=== PATIENT | female | born 1990 | race Caucasian/White ===

== ENCOUNTER 2022-02-08 14:27 | Emergency (ER) | payer OTHER, SELFPAY ==
[2022-02-08 14:38] VITALS: BP 135/99; PULSE 98; RESP 18; TEMP 37.2; O2SAT 99
--- NOTE | 2022-02-08 14:38 | ED.DENTAL ---
HPI - Dental/Oral General Chief complaint: Dental/Oral Stated complaint: JAW PAIN Time Seen by Provider: 02/08/22 14:45 Mode of arrival: ambulatory Limitations: no limitations History of Present Illness HPI Narrative: 31-year-old female presents concern for right jaw pain. She reports she has always had some jaw popping, however on Sunday it popped mildly and since then she has had continuous pain in her right jaw. She reports pain is exacerbated by talking, chewing, coughing, sneezing. Reports the pain is starting to radiate up toward her ear and down the jaw. She denies the opening her mouth or closing her mouth. She denies dental trauma, fever. She reports she is been taking 600 mg ibuprofen every 6 hours since Sunday. MD Complaint: tooth pain (Jaw pain) Related Data Home Medications Medication Instructions Recorded Confirmed Zyrtec 02/08/22 buspirone 5 mg tablet mg 02/08/22 norethindrone 1 mg-ethinyl tablet 02/08/22 estradiol 10 mcg (24)-iron 10 mcg(2) tablet (Lo Loestrin Fe) spironolactone 100 mg tablet mg 02/08/22 trazodone 100 mg tablet mg 02/08/22 Allergies Allergy/AdvReac Type Severity Reaction Status Date / Time codeine AdvReac Nausea and Verified 02/08/22 14:34 Vomiting Review of Systems Review of Systems: CONSTITUTIONAL: Denies malaise, chills, sweats, or fever. EYES: Denies visual changes ENT: Denies rhinorrhea, congestion, sinus pain, otalgia or sore throat. Reports right jaw pain CARDIOVASCULAR: Denies chest pain, palpitations RESPIRATORY: Denies cough or dyspnea. SKIN: Denies rash or itching. MUSCULOSKELETAL: Denies myalgia. NEUROLOGIC: Denies numbness, weakness, or headache. All systems reviewed & are unremarkable except as noted in HPI and below PMFSH Comments At time of signature, agree with nursing past medical, surgical, social and family history. There is no relevant family history pertinent to the presenting complaint Exam Narrative: GENERAL: Well-appearing, well-nourished, and in no acute distress. HEAD: Normocephalic, atraumatic. EYES: PERRLA, sclera clear ENT: Nares clear, turbinates pink, no rhinorrhea or epistaxis. Mucous membranes moist. TM pearly lanza with sharp light reflex bilaterally; no tragal tenderness. Oropharynx without erythema or lesions. Tonsils not enlarged and without exudate. No missing teeth, broken teeth, or caries. Bilateral jaw popping noted with opening and closing the mouth, right-sided tenderness palpation NECK: Supple. No lymphadenopathy. CHEST: No respiratory distress. Speaks in full sentences. HEART: Regular rate and rhythm. SKIN: Warm, dry, no visible rash. NEURO: Alert and oriented x3. PSYCH: Normal mood and affect Course Course Emergency Course: Patient is aware of diagnosis, understands and agrees to treatment plan. Anticipatory guidance given. Patient agrees to follow-up as directed and is aware of reasons to seek care at the emergency department. Portions of this record may have been created with voice recognition software Level of Care: Express Care Visit Vital Signs Vital signs: Reviewed. MDM - Dental/Oral MDM Narrative Medical decision making narrative: Exam findings show no acute concerns or changes; patient is non-toxic appearing and is in no distress. Patient is appropriate for outpatient treatment and follow-up. Differential Diagnosis Differential diagnosis: Likely toothache, dental abscess, fracture of tooth and other (TMJ, abscess) Critical Care Time Critical Care Time Critical Care Time: No Discharge Plan Discharge Clinical Impression: TMJ (dislocation of temporomandibular joint) Patient Disposition: Home, Self-Care Condition: Stable Instructions: Antibiotic Form Additional Instructions: -Apply moist heat to affected side first thing in the morning and before meals for 5-10 minutes. -After applying heat massage the painful area for 2-3 minutes -After massage. apply ice or cool co
== END 2022-02-08 15:02 | disposition home or self-care (01) ==
PROVIDERS: Emergency Provider Nurse Practitioner; PCP Physician Assistant
DX: S03.03XA Dislocation of jaw, bilateral, initial encounter (principal); X58.XXXA Exposure to other specified factors, initial encounter; M35.9 Systemic involvement of connective tissue, unspecified
CPT/HCPCS: 99213; G0463

== ENCOUNTER 2024-04-15 05:29 | Emergency (ER) | payer OTHER, SELFPAY ==
[2024-04-15 05:33] VITALS: BP 120/96; PULSE 118; RESP 15; TEMP 36.6; O2SAT 97
[2024-04-15 05:41] LABS: Basophils Absolute Auto 0.1 K/mm3 (0.0-0.1); Basophils Percent Auto 0.4 % (0.2-1.2); Eosinophils Absolute Auto 0.1 K/mm3 (0-0.3); Eosinophils Percent Auto 0.4 % (0-4.4); Hematocrit 47.4 % (37.0-47.0); Immature Granulocyte Absolute 0.05 K/mm3 (0.00-0.031); Immature Granulocyte Percent A 0.4 % (0-0.5); Lymphocytes Absolute Auto 2.31 K/mm3 (0.9-3.2); Mean Corpuscular HGB Conc 33.8 g/dl (32-36); Mean Corpuscular Hemoglobin 31.2 pg (26-34); Mean Corpuscular Volume 92.4 fl (80-100); Mean Platelet Volume 10.6 fl (7.4-10.4); Monocytes Absolute Auto 0.9 K/mm3 (0.1-0.6); Neutrophils Absolute Auto 8.2 K/mm3 (1.3-6.7); Neutrophils Percent Auto 70.8 % (45.5-73.1); Platelet Count Result 274 k/mm3 (150-375); Red Blood Count 5.13 M/mm3 (4.2-5.4); Red Cell Distribution Width 12.3 % (11.5-14.5); White Blood Count 11.6 K/mm3 (4.5-10.0)
[2024-04-15 05:46] VITALS: BP 120/95; PULSE 102; RESP 16; O2SAT 99
[2024-04-15 05:48] LABS: BEDSIDEPREGUCG Negative (Negative)
[2024-04-15 05:51] LABS: Alanine Aminotransferase 53 U/L (6-35); Alkaline Phosphatase 68 U/L (38-126); Anion Gap 13 mmol/L (4-12); Aspartate Amino Transferase 43 U/L (14-36); Blood Urea Nitrogen 16 mg/dL (7-17); Calcium 9.9 mg/dL (8.4-10.2); Carbon Dioxide 25 mmol/L (22-30); Chloride 100 mmol/L (98-107); Estimated CRCL calculation 102 ml/min; Estimated Glomerular Filt Rate > 60; Glucose 99 mg/dL (65-110); Lipase 122 U/L (23-300); Potassium 3.9 mmol/L (3.4-5.0); Sodium 138 mmol/L (137-145)
[2024-04-15 05:54] VITALS: BP 110/88; BP 124/102; BP 96/51; PULSE 87; PULSE 91; PULSE 95
--- NOTE | 2024-04-15 05:54 | ED.GENADULT ---
HPI - General Adult General Chief complaint: Nausea/Vomiting/Diarrhea Stated complaint: N/V for 30 hours Time Seen by Provider: 04/15/24 05:41 History of Present Illness HPI narrative: Patient 33-year-old female presents emergency department with chief complaint of nausea vomiting and abdominal cramping. The patient reports that she started having nausea vomiting had diarrhea on Sunday patient reports the diarrhea stopped but she has been unable to keep anything down. The patient states she has cramping in her abdomen does report that she has prior surgical history for appendectomy reports she is currently on her period. Related Data Home Medications Medication Instructions Recorded Confirmed Zyrtec 02/08/22 buspirone 5 mg tablet mg 02/08/22 norethindrone 1 mg-ethinyl tablet 02/08/22 estradiol 10 mcg (24)-iron 10 mcg(2) tablet (Lo Loestrin Fe) spironolactone 100 mg tablet mg 02/08/22 trazodone 100 mg tablet mg 02/08/22 Allergies Allergy/AdvReac Type Severity Reaction Status Date / Time codeine AdvReac Nausea and Verified 04/15/24 05:29 Vomiting Review of Systems Review of Systems: A 10 system review of systems was completed on the patient and is negative except for what is stated in the HPI. Nursing and ancillary documentation was reviewed. Exam Narrative: GENERAL: Well-appearing, well-nourished, and in no acute distress. HEAD: Normocephalic, atraumatic. EYES: PERRLA and EOMI. ENT: Nares clear, no rhinorrhea or epistaxis. Mucous membranes dry NECK: Supple. CHEST: Clear to auscultation. No respiratory distress. HEART: Regular rate and rhythm. No murmur heard. Normal peripheral pulses. ABDOMEN: Soft, nontender, nondistended, normal active bowel sounds. EXTREMITIES: Normal range of motion. No edema. SKIN: Warm, dry, no rash. NEURO: No focal deficits. Alert and oriented x3. PSYCH: Normal mood and affect. Course Vital Signs Vital signs: Vital Signs Temperature 36.6 C 04/15/24 05:33 Pulse Rate 118 H 04/15/24 05:33 Respiratory Rate 15 04/15/24 05:33 Blood Pressure 120/96 H 04/15/24 05:33 Pulse Oximetry 97 04/15/24 05:33 Oxygen Delivery Room Air 04/15/24 05:33 Temperature 36.7 C 04/15/24 06:41 Pulse Rate 82 04/15/24 06:41 Respiratory Rate 16 04/15/24 06:41 Blood Pressure 123/84 04/15/24 06:41 Pulse Oximetry 96 04/15/24 06:41 Oxygen Delivery Room Air 04/15/24 05:33 Medical Decision Making MDM Narrative Medical decision making narrative: differential diagnosis includes gastroenteritis, dehydration patient's laboratory studies showed a hemoglobin of 16.0 the patient does appear to be dry with mild dehydration electrolytes showed a normal bilirubin with AST and ALT of 43 and 53 respectively urinalysis shows 3+ ketones patient received 2 L of normal saline boluses. Patient received Compazine and Benadryl initially was still nauseated patient received a dose of Zofran Vital Signs Vital Signs: Vital Signs Temperature 36.6 C 04/15/24 05:33 Pulse Rate 118 H 04/15/24 05:33 Respiratory Rate 15 04/15/24 05:33 Blood Pressure 120/96 H 04/15/24 05:33 Pulse Oximetry 97 04/15/24 05:33 Oxygen Delivery Room Air 04/15/24 05:33 Temperature 36.7 C 04/15/24 06:41 Pulse Rate 82 04/15/24 06:41 Respiratory Rate 16 04/15/24 06:41 Blood Pressure 123/84 04/15/24 06:41 Pulse Oximetry 96 04/15/24 06:41 Oxygen Delivery Room Air 04/15/24 05:33 Lab Data 04/15/24 05:37 04/15/24 05:37 Labs: Lab Results 04/15/24 04/15/24 04/15/24 Range/Units 05:37 05:43 05:46 WBC 11.6 H (4.5-10.0) K/mm3 RBC 5.13 (4.2-5.4) M/mm3 Hgb 16.0 H (12.0-15.0) g/dL Hct 47.4 H (37.0-47.0) % MCV 92.4 (80-100) fl MCH 31.2 (26-34) pg MCHC 33.8 (32-36) g/dl RDW 12.3 (11.5-14.5) % Plt Count 274 (150-375) k/mm3 MPV 10.6 H (7.4-10.4) fl Jamia
[2024-04-15] MEDS: PROCHLORPERAZINE EDISYLATE 10 MG/2 ML VIAL IV PUSH (05:58)
[2024-04-15] MEDS: diphenhydrAMINE HCl INJ 50 MG/ML VIAL 25 MG IV PUSH (05:58)
[2024-04-15] MEDS: SODIUM CHLORIDE 0.9% IV 1,000 ML 999 ML IV CONT (05:59)
[2024-04-15 06:04] LABS: Appearance Urine Clear (Clear); Blood Urine 2+ (Negative); Color Urine Yellow (Yellow); Glucose Urine UA Negative (Negative); Ketones Urine 3+ mg/dL (Negative); Leukocyte Esterase Ur Trace LEU/UL (Negative); Nitrate Urine Negative (Negative); Protein Urine 2+ mg/dL (Negative); Specific Grav Ur 1.037 (1.001-1.035); pH Urine 5.5 (5.0-9.0)
[2024-04-15 06:05] LABS: Add Urine Microscopic? YES; Bilirubin Urine 2+ (Negative)
[2024-04-15 06:06] LABS: Bacteria Urine Trace /hpf; RBC Urine 21-50 /hpf (0-2)
[2024-04-15] MEDS: ONDANSETRON INJ 4 MG/2 ML VIAL IV PUSH (06:34)
[2024-04-15 06:41] VITALS: BP 123/84; PULSE 82; RESP 16; TEMP 36.7; O2SAT 96
--- NOTE | 2024-04-15 07:21 | PC.NURSE ---
Assumed care of pt. Pt states nausea improved, is reluctant to move fearing it will return. Ice chips given
[2024-04-15 07:32] VITALS: BP 106/71; PULSE 92; RESP 18; O2SAT 99
== END 2024-04-15 07:34 | disposition home or self-care (01) ==
PROVIDERS: Emergency Provider Emergency Medicine; PCP Physician Assistant
DX: R11.2 Nausea with vomiting, unspecified (principal); E86.0 Dehydration; R82.998 Other abnormal findings in urine
CPT/HCPCS: 36415; 80053; 81001; 81025; 83690; 85025; 87086; 96361; 96374; 96375; 99284; J0780; J1200; J2405; J7030

== ENCOUNTER 2024-09-26 07:56 | Outpatient (CLI) | payer OTHER, SELFPAY ==
--- OUTSIDE RECORDS SUMMARY | 2024-09-26 08:08 | XMS_ITS | Data Portability ---
Author Organization [facility], Main Office Address [address] [place] [address] Assessment No assessment recorded. Plan of Treatment Reminders Order Date Submit Date Provider Last Modified By Organization Details Last Modified Time Details Appointments None recorded. Lab insulin, serum 2022 023 [email or web address] Not available 4 10:01:22 lipid panel, serum 2022 023 [email or web address] Not available 4 10:01:21 CMP, serum or plasma 2022 023 [email or web address] Not available 4 10:01:21 CBC w/ auto diff 2022 023 [email or web address] Not available 4 10:01:21 TSH + free T4, serum 2022 023 [email or web address] Not available 4 10:01:21 HbA1c (hemoglobin A1c), blood 2022 023 [email or web address] Not available 4 10:01:22 Referral None recorded. Procedures None recorded. Surgeries None recorded. Imaging None recorded. Medication Orders buspirone 7.5 mg tablet 2022 023 [facility], [address], [place], [address], 3 10:38:48 Dayvigo 10 mg tablet 2022 023 [email or web address] [id number], [address] [facility], [place], [place], [id number], 3 18:08:48 Wegovy 0.25 mg/0.5 mL subcutaneou s pen injector 2022 023 [email or web address], [address] [facility], [place], [place], [id number], 3 08:56:47 trazodone 100 mg tablet 2022 023 [email or web address] [facility], [address] [facility], [place], [place], [id number], 3 10:33:06 Patient TargetsNo targets recorded. Patient InstructionsNo instructions recorded. Reason for Referral None Reported. Results Created Date Observation Date Name Description Value Unit Range Abnormal Flag Note LastModifiedBy Organization Detail LastModifiedTime 12/11/1912/12/2021 VITAM IN B12/F OLATE , SERUM PANEL vitamin B12 295 pg/mL 200-11 00 normal Pleas e Note: Altho ugh the refer ence range for vitam in B12 is 200-1 100 pg/mL , it has been repor nhi that betwe en 5 and 10% of patie nts with value s betwe en 200 and 400 pg/mL may exper ience neuro psych iatri c and hemat ologi c abnor malit ies due to occul t B12 defic iency ; less than 1% of patie nts with value s above 400 pg/mL will have sympt oms. Not Available [facility] [address] [place], [address], 12/12/2021 15:26:29 12/11/19 22 12/12/2021 VITAM IN B12/F OLATE , SERUM PANEL folate, serum 8.5 NG/mL normal Refer ence Range Low: <3.4 Borde rline : 3.4-5 .4 Clarisse l: >5.4 Not Available [facility] [address] [place], [address], 12/12/2021 15:26:29 12/11/19 22 12/12/2021 CBC (INCL UDES DIFF/ PLT) white blood cell count 6.3 thous and/u L 3.8-10 .8 normal Not Available [address], [address], 12/12/2021 15:26:29 12/11/19 22 12/12/2021 CBC (INCL UDES DIFF/ PLT) red blood cell count 4.57 anastacia on/uL 3.80-5 .10 normal Not Available [address], [address], 12/12/2021 15:26:29 12/11/19 22 12/12/2021 CBC (INCL UDES DIFF/ PLT) hemoglobin 13.6 g/dL 11.7-1 5.5 normal Not Available [address], [address], 12/12/2021 15:26:29 12/11/19 22 12/12/2021 CBC (INCL UDES DIFF/ PLT) hematocrit 42.1 % 35.0-4 5.0 normal Not Available [address], [address], 12/12/2021 15:26:29 12/11/19 22 12/12/2021 CBC (INCL UDES DIFF/ PLT) MCV 92.1 fL 80.0-1 00.0 normal Not Available [address], [address], 12/12/2021 15:26:29 12/11/19 22 12/12/2021 CBC (INCL UDES DIFF/ PLT) MCH 29.8 pg 27.0-3 3.0 normal Not Available [address], [address], 12/12/2021 15:26:29 12/11/19 22 12/12/2021 CBC (INCL UDES DIFF/ PLT) MCHC 32.3 g/dL 32.0-3 6.0 normal Not Available [address], [address], 12/12/2021 15:26:29 12/11/19 22 12/12/2021 CBC (INCL UDES DIFF/ PLT) RDW 12.3 % 11.0-1 5.0 normal Not Available [address], [address], 12/12/2021 15:26:29 12/11/19 22 12/12/2021 CBC (INCL UDES DIFF/ PLT) platelet count 195 thous and/u L 140-40 0 normal Not Available [address], [address], 12/12/2021 15:26:29 12/11/19 22 12/12/2021 CBC (INCL UDES DIFF/ PLT) MPV 11.8 fL 7.5-12 .5 normal Not Available [address], [address], 12/12/2021 15:26:29 12/11/19 22 12/12/2021 CBC (INCL UDES DIFF/ PLT) absolute neutrophils 3635 cells /uL 1500-7 800 normal Not Available [address], [address], 12/12/2021 15:26:29 12/11/19 22 12/12/2021 CBC (INCL UDES DIFF/ PLT) absolute lymphocytes 2010 cells /uL 850-39 00 normal Not Available [address], [address], 12/12/2021 15:26:29 12/11/19 22 12/12/2021 CBC (INCL UDES DIFF/ PLT) absolute monocytes 536 cells /uL 200-95 0 normal Not Available [address], [address], 12/12/2021 15:26:29 12/11/19 22 12/12/2021 CBC (INCL UDES DIFF/ PLT) absolute eosinophils 69 cells /uL 15-500 normal Not Available [facility] [address] [place], [address], 12/12/2021 15:26:29 12/11/19 22 12/12/2021 CBC (INCL UDES DIFF/ PLT) absolute basophils 50 cells /uL 0-200 normal Not Available [facility] [address], [address], 12/12/2021 15:26:29 12/11/19 22 12/12/2021 CBC (INCL UDES DIFF/ PLT) neutrophils 57.7 % normal Not Available [facility] [address], [address], 12/12/2021 15:26:29 12/11/19 22 12/12/2021 CBC (INCL UDES DIFF/ PLT) lymphocytes 31.9 % normal Not Available [facility] [address], [address], 12/12/2021 15:26:29 12/11/19 22 12/12/2021 CBC (INCL UDES DIFF/ PLT) monocytes 8.5 % normal Not Available [facility] [address], [address], 12/12/2021 15:26:29 12/11/19 22 12/12/2021 CBC (INCL UDES DIFF/ PLT) eosinophils 1.1 % normal Not Available [facility] [address], [address], 12/12/2021 15:26:29 12/11/19 22 12/12/2021 CBC (INCL UDES DIFF/ PLT) basophils 0.8 % normal Not Available [facility] [address], [address], 12/12/2021 15:26:29 12/11/19 22 12/12/2021 T4, FREE T4, free 1.1 NG/dL 0.8-1. 8 normal Not Available [facility] [address] [place] [address], [address], 12/12/2021 15:26:28 12/11/19 22 12/12/2021 TSH TSH 1.81 mIU/L normal Refer ence Range > or = 20 Years 0.40- 4.50 Pregn sarah Range s First trime ster 0.26- 2.66 Secon d trime ster 0.55- 2.73 Third trime ster 0.43- 2.91 Not Available [address], [address], 12/12/2021 15:26:27 12/11/19 22 12/12/2021 MAGNE SIUM magnesium 2.0 mg/dL 1.5-2. 5 normal Not Available [address], [address], 12/12/2021 15:26:26 12/11/19 22 12/12/2021 HEMOG LOBIN A1C hemoglobin A1C 4.9 %_of_ total _HGB <5.7 normal For the purpo se of christopher wallace for the prese nce of diabe selam: <5.7% Consi stent with the absen ce of diabe selam 5.7-6 .4% Consi stent with incre ased risk for diabe selam (pred iabet es) > or =6.5% Consi stent with diabe selam This assay resul t is consi stent with a decre ased risk of diabe selam. Curre ntly, no conse nsus exist s santana jorgensen use of hemog lobin A1c for diagn osis of diabe selam in child jose. Accor jameel to Ameri can Diabe selam Assoc iatio n (ADA) guide lines , hemog lobin A1c <7.0% repre sents optim al contr ol in non-p regna nt diabe tic patie nts. Diffe rent metri cs may apply to speci fic patie nt popul ation s. Stand ards of Medic al Care in Diabe selam(A DA). Not Available [address], [address], 12/12/2021 15:26:26 12/11/19 22 12/12/2021 COMPR EHENS ANGELA METAB OLIC PANEL glucose 80 mg/dL 65-99 normal Fasti ng refer ence inter rohit Not Available [facility] [address] [address] [place], [address], 12/12/2021 15:26:25 12/11/19 22 12/12/2021 COMPR EHENS ANGELA METAB OLIC PANEL urea nitrogen (BUN) 10 mg/dL 7-25 normal Not Available [address], [address], 12/12/2021 15:26:25 12/11/19 22 12/12/2021 COMPR EHENS ANGELA METAB OLIC PANEL creatinine 0.69 mg/dL 0.50-1 .10 normal Not Available [address], [address], 12/12/2021 15:26:25 12/11/19 22 12/12/2021 COMPR EHENS ANGELA METAB OLIC PANEL eGFR non-afr. turkish 114 mL/mi n/1.7 3m2 > or = 60 normal Not Available [address] [address] [place], [address], 12/12/2021 15:26:25 12/11/19 22 12/12/2021 COMPR EHENS ANGELA METAB OLIC PANEL eGFR 133 mL/mi n/1.7 3m2 > or = 60 normal Not Available [facility] [address], [address], 12/12/2021 15:26:25 12/11/19 22 12/12/2021 COMPR EHENS ANGELA METAB OLIC PANEL BUN/creatini ne ratio not applic able (calc ) 6-22 Not Available [address], [address], 12/12/2021 15:26:25 12/11/19 22 12/12/2021 COMPR EHENS ANGELA METAB OLIC PANEL sodium 138 mmol/ L 135-14 6 normal Not Available [address], [address], 12/12/2021 15:26:25 12/11/19 22 12/12/2021 COMPR EHENS ANGELA METAB OLIC PANEL potassium 4.0 mmol/ L 3.5-5. 3 normal Not Available [address], [address], 12/12/2021 15:26:25 12/11/19 22 12/12/2021 COMPR EHENS ANGELA METAB OLIC PANEL chloride 102 mmol/ L 98-110 normal Not Available [address], [address], 12/12/2021 15:26:25 12/11/19 22 12/12/2021 COMPR EHENS ANGELA METAB OLIC PANEL carbon dioxide 28 mmol/ L 20-32 normal Not Available [address], [address], 12/12/2021 15:26:25 12/11/19 22 12/12/2021 COMPR EHENS ANGELA METAB OLIC PANEL calcium 9.3 mg/dL 8.6-10 .2 normal Not Available [address], [address], 12/12/2021 15:26:25 12/11/19 22 12/12/2021 COMPR EHENS ANGELA METAB OLIC PANEL protein, total 7.0 g/dL 6.1-8. 1 normal Not Available [address], [address], 12/12/2021 15:26:25 12/11/19 22 12/12/2021 COMPR EHENS ANGELA METAB OLIC PANEL albumin 4.1 g/dL 3.6-5. 1 normal Not Available [address], [address], 12/12/2021 15:26:25 12/11/19 22 12/12/2021 COMPR EHENS ANGELA METAB OLIC PANEL globulin 2.9 g/dL_ (calc ) 1.9-3. 7 normal Not Available [address], [address], 12/12/2021 15:26:25 12/11/19 22 12/12/2021 COMPR EHENS ANGELA METAB OLIC PANEL albumin/glob ulin ratio 1.4 (calc ) 1.0-2. 5 normal Not Available [address], [address], 12/12/2021 15:26:25 12/11/19 22 12/12/2021 COMPR EHENS ANGELA METAB OLIC PANEL bilirubin, total 0.4 mg/dL 0.2-1. 2 normal Not Available [address], [address], 12/12/2021 15:26:25 12/11/19 22 12/12/2021 COMPR EHENS ANGELA METAB OLIC PANEL alkaline phosphatase 45 U/L 31-125 normal Not Available [address], [address], 12/12/2021 15:26:25 12/11/19 22 12/12/2021 COMPR EHENS ANGELA METAB OLIC PANEL AST 23 U/L 10-30 normal Not Available [address], [address], 12/12/2021 15:26:25 12/11/19 22 12/12/2021 COMPR EHENS ANGELA METAB OLIC PANEL ALT 28 U/L 6-29 normal Not Available [facility] [address] [place], [address], 12/12/2021 15:26:25 12/11/19 22 12/12/2021 LIPID PANEL , STAND CHAYITO cholesterol, total 214 mg/dL <200 high Not Available [facility] [address] [place], [address], 12/12/2021 15:26:25 12/11/19 22 12/12/2021 LIPID PANEL , STAND CHAYITO HDL cholesterol 90 mg/dL > or = 50 normal Not Available [facility] [address] [address] [place], [address], 12/12/2021 15:26:25 12/11/19 22 12/12/2021 LIPID PANEL , STAND CHAYITO triglyceride s 67 mg/dL <150 normal Not Available [address] [address] [place], [address], 12/12/2021 15:26:25 12/11/19 22 12/12/2021 LIPID PANEL , STAND CHAYITO LDL-choleste rol 109 mg/dL _(theo c) high Refer ence range : <100 Anastasia able range <100 mg/dL for prima ry preve ntion ; <70 mg/dL for patie nts with CHD or diabe tic patie nts with > or = 2 CHD risk facto rs. LDL-C is now calcu lated using the Lesa n-Hop kins calcu cristina n, which is a valid ated novel metho d provi jameel sood r accur acy than the Fried stephania equat ion in the estim ation of LDL-C . Lesa lei SS et al. ROBERTO. 2013; 310(1 9): 2061- 2068 (http ://ed ucati on.Qu Danial montoya [employer]. com/f aq/FA Q164) Not Available [facility] [address] [place], [address], 12/12/2021 15:26:25 12/11/19 22 12/12/2021 LIPID PANEL , STAND CHAYITO chol/HDLC ratio 2.4 (calc ) <5.0 normal Not Available [facility] [address] [place], [address], 12/12/2021 15:26:25 12/11/19 22 12/12/2021 LIPID PANEL , STAND CHAYITO non HDL cholesterol 124 mg/dL _(theo c) <130 normal For patie nts with diabe selam plus 1 major ASCVD risk facto r, treat ing to a non-H DL-C goal of <100 mg/dL (LDL- C of <70 mg/dL ) is consi haleyd a thera librado daniels optio n. Not Available [facility] [address] [address], [place], [address], 12/12/2021 15:26:25 06/21/20 22 06/21/2022 rapid strep group A, throa t STREP A negati ve Not Available [facility] [place] [address], [place], [address], 06/21/2022 15:53:17 06/21/20 22 06/21/2022 rapid flu (A+B) Flu A negati ve Not Available [facility] [place] [address], [place], [address], 06/21/2022 15:53:15 06/21/20 22 06/21/2022 rapid flu (A+B) Flu B negati ve Not Available [facility] [place] [address], [place], [address], 06/21/2022 15:53:15 Result Notes None recorded. Problems Name Problem SNOMED Code Status Onset Date Resolution Date Notes Provider Name and Address Organization Details Recorded Time Pain of right temporoman dibular joint 9965586914956 9107 Active 2021 Not Available [facility] 3 16:58:25 Insomnia 405626574 Active 2021 Not Available [facility] 3 16:58:25 Generalize d anxiety disorder 48679157 Active 2018 Not Available [facility] 3 16:58:25 Bronchitis 11754535 Active Not Available [facility] 3 16:58:25 Acute pharyngiti s 124982484 Active 2021 Not Available [facility] 3 16:58:25 Fever 041208332 Active 2021 Not Available [facility] 3 16:58:25 Postviral cough 936409326 Active 2021 Not Available [facility] 3 16:58:25 Viral syndrome 974661042 Active 2021 Not Available [facility] 3 16:58:25 Cough 32080058 Active Not Available [facility] 3 16:58:25 Vitamin B12 deficiency (non anemic) 80333718 Active 2021 Not Available [facility] 3 16:58:25 Palpitatio ns 61239119 Active 2021 Not Available [facility] 3 16:58:25 Obesity 194407969 Active 2022 ASHU Celaya [address] [facility] [address], [place], [address] , [facility] [employer] [facility] 3 16:52:08 Notes:COVID pos 09/02/21 Problem Notes None recorded. Procedures Surgical History Date Name Laterality Status Provider Name and Address Organization Details Recorded Time Appendectomy completed Not Available [facility] 09/06/2022 16:57:22 other completed Not Available [facility] 07/2022 16:57:22 Tonsillectomy completed Not Available [facility] 09/06/2022 16:57:22 Imaging Results None recorded. Procedure Notes None recorded. Medical Equipment None Reported. Allergies Allergen ID Allergen Name Allergen Category Reaction Reaction Severity Criticality Documentation Date Start Date Code Code System Note Provider Name and Address Organization Details Recorded Time 99414 acetamino phen / hydrocodo ne medicatio n Not available Not available Not available 09/06/2022 25764 2 RxNorm Not Available [facility] 3 16:59:55 42796 codeine medicatio n vomiting Not available Not available 09/06/2022 2670 RxNorm Not Available [facility] 3 16:59:55 Medications Name Sig Start Date Stop Date Status Note LastModified by Organization Details LastModified Time cyclobenzap rine 10 mg tablet TAKE 1 TABLET BY MOUTH THREE TIMES DAILY NEEDED active Not Available Not Available No t Available buspirone 5 mg tablet Take 1.5 tablets twice a day by oral route. 10/17 completed Not Available Not Available Not Available prednisone 10 mg tablet 3 qd x 2 days, 2 qd x 2 days, 1 qd x 2 days active Not Available Not Available No t Available cefuroxime axetil 250 mg tablet 09/16 completed Not Available Not Available Not Available trazodone 50 mg tablet TAKE 1 TABLET BY MOUTH EVERY DAY AT BEDTIME 09/16 completed Not Available Not Available Not Available Pneumovax-2 3 25 mcg/0.5 mL injection solution UTD active Not Available Not Available Not Available fluconazole 150 mg tablet TK 1 T PO QD FOR 1 DAY 09/16 completed Not Available Not Available Not Available benzonatate 200 mg capsule TK 1 C PO TID 12/06 completed Not Available Not Available Not Available spironolact one 100 mg tablet Take 1 tablet every day by oral route for 90 days. active Not Available Not Available No t Available Zithromax Z-Michele 250 mg tablet TAKE 2 TABLETS (500 MG) BY ORAL ROUTE ONCE DAILY FOR 1 DAY THEN 1 TABLET (250 MG) BY ORAL ROUTE ONCE DAILY FOR 4 DAYS 10/16 completed Not Available Not Available Not Available tramadol 50 mg tablet TAKE 1 TABLET BY MOUTH EVERY 4 TO 6 HOURS NEEDED FOR PAIN. 06/21 completed Not Available Not Available Not Available ondansetron 8 mg disintegrat ing tablet TK 1 T PO Q 6 H PRN N 09/01 completed Not Available Not Available Not Available ketorolac 10 mg tablet TK 1 T PO Q 8 H 09/01 completed Not Available Not Available Not Available Microgestin FE 07/28 (28) 1 mg-20 mcg (21)/75 mg (7) tablet 09/16 completed Not Available Not Available Not Available amoxicillin 875 mg tablet Take 1 tablet every 12 hours by oral route. 03/22 completed Not Available Not Available Not Available trazodone 100 mg tablet TAKE 2 TABLETS BY MOUTH EVERY DAY AT BEDTIME 04/30 completed Not Available Not Available Not Available benzonatate 100 mg capsule 09/16 completed Not Available Not Available Not Available cephalexin 250 mg/5 mL oral suspension TK 1 TEA PO BID FOR 10 DAYS 09/01 completed Not Available Not Available Not Available polymyxin B sulfate 10,000 unit-trimet hoprim 1 mg/mL eye drops 09/16 completed Not Available Not Available Not Available sertraline 25 mg tablet TK 1 T PO QD HS 09/16 completed Not Available Not Available Not Available buspirone 7.5 mg tablet TAKE 1 TABLET BY MOUTH TWICE DAILY active Not Available Not Available No t Available omeprazole 20 mg capsule,del ayed release TK 1 C PO D 30 MINUTES BEFORE A MEAL 09/01 completed Not Available Not Available Not Available gentamicin 0.1 % topical cream 09/16 completed Not Available Not Available Not Available cyanocobala min (vit B-12) 1,[address] 1 tablet every day by sublingua l route. 04/27 completed Not Available Not Available Not Available cefuroxime axetil 500 mg tablet TK 1 T PO Q 12 H FOR 14 DAYS 09/16 completed Not Available Not Available Not Available methylpredn isolone 4 mg tablets in a dose pack FOLLOW PACKAGE DIRECTION S 02/13 completed Not Available Not Available Not Available spironolact one 50 mg tablet TK 1 T PO QD 09/16 completed Not Available Not Available Not Available amoxicillin 875 mg-potassiu m clavulanate 125 mg tablet 09/16 completed Not Available Not Available Not Available hydrocodone 7.5 mg-acetamin ophen 325 mg/15 mL oral solution TK 2 SELAM PO Q 4 H PRN P 09/01 completed Not Available Not Available Not Available eszopiclone 3 mg tablet TAKE 1 TABLET BY MOUTH EVERY DAY AT BEDTIME active Not Available Not Available No t Available daily 03/23 completed Not Available Not Available Not Available ProAir HFA 90 mcg/actuati on aerosol inhaler Inhale 2 puffs every 4 hours by inhalatio n route. 09/16 completed Not Available Not Available Not Available doxepin 6 mg tablet TAKE 1 TABLET BY MOUTH EVERY DAY AT BEDTIME 04/30 completed Not Available Not Available Not Available Lo Loestrin Fe 1 mg-10 mcg (24)/10 mcg (2) tablet TAKE 1 TABLET BY MOUTH EVERY DAY active Not Available Not Available No t Available Lo Loestrin Fe 09/16 completed Not Available Not Available Not Available Virtussin AC 10 mg-100 mg/5 mL oral liquid 09/16 completed Not Available Not Available Not Available OxyContin 10 mg tablet,loretta h resistant,e xtended release TK 1 T PO Q 4 H PRF MODERATE PAIN 09/01 completed Not Available Not Available Not Available Saxenda 3 mg/0.5 mL (18 mg/3 mL) subcutaneou s pen injector week 1: 0.6mg SQ dailyweek 2: 1.2mg SQ dailyweek 3: 1.8mg SQ dailyweek 4: 2.4mg SQ dailyweek 5: 3.0mg SQ daily 06/21 completed Not Available Not Available Not Available cyanocobala min (vit B-12) 1,000 mcg sublingual lozenge DISSOLVE ONE TABLET UNDER TONGUE EVERY DAY active Not Available Not Available No t Available Fluarix Quad (PF) 60 mcg (15 mcg x 4)/0.5 mL IM syringe ADM 0.5ML IM UTD 09/16 completed Not Available Not Available Not Available ID NOW COVID-19 Test Kit TEST DIRECTED TODAY 09/19 completed Not Available Not Available Not Available Dayvigo 10 mg tablet Take by oral route for 30 days. active Not Available Not Available No t Available Wegovy 1.7 mg/0.75 mL subcutaneou s pen injector INJECT 1.7 MG UNDER THE SKIN EVERY WEEK DIRECTED 2023 active Not Available Not Available Not Avai lable Wegovy 1 mg/0.5 mL subcutaneou s pen injector ADMINISTE R 0.5 ML UNDER THE SKIN EVERY WEEK DIRECTED 04/30 completed Not Available Not Available Not Available Wegovy 0.25 mg/0.5 mL subcutaneou s pen injector Inject 0.25 mg every week by subcutane ous route. 12/08 completed Not Available Not Available Not Available Wegovy 0.5 mg/0.5 mL subcutaneou s pen injector Inject 0.5 mg every week by subcutane ous route as directed. 04/30 completed Not Available Not Available Not Available Vitals Date Recorded Body mass index (BMI) Body height Oxygen saturation Oxygen saturation in Arterial blood by Pulse oximetry Heart rate Respiratory rate Body temperature Body weight Systolic blood pressure Diastolic blood pressure Provider Name and Address Organization Details Last Updated DateTime 2 38.6 kg/m2 167.64 cm 98 % 98 % 92 /min 16 /min 98 [degF] 302874. 58 g 114 mm[Hg] 68 mm[Hg] Not Available [facility] 3 16:57:42 Date Recorded Body mass index (BMI) Body height Oxygen saturation Oxygen saturation in Arterial blood by Pulse oximetry Heart rate Body temperature Body weight Systolic blood pressure Diastolic blood pressure Provider Name and Address Organization Details Last Updated DateTime 2 37.7 kg/m2 167.64 cm 98 % 98 % 89 /min 97.2 [degF] 301906. 9 g 114 mm[Hg] 74 mm[Hg] Not Available [facility] 3 16:57:42 Date Recorded Body mass index (BMI) Body height Oxygen saturation Oxygen saturation in Arterial blood by Pulse oximetry Heart rate Respiratory rate Body temperature Body weight Provider Name and Address Organization Details Last Updated DateTime 2 40 kg/m2 167.64 cm 98 % 98 % 110 /min 16 /min 97.6 [degF] 527305. 91 g Not Available [facility] 3 16:57:43 Date Recorded Body height Body weight Body temperature Heart rate Oxygen saturation Oxygen saturation in Arterial blood by Pulse oximetry Systolic blood pressure Diastolic blood pressure Provider Name and Address Organization Details Last Updated DateTime 3 167.64 cm 509423. 46 g 97.8 [degF] 64 /min 99 % 99 % 124 mm[Hg] 78 mm[Hg] Abida Monique, [facility] [employer] [facility] 3 16:25:25 Date Recorded Body mass index (BMI) Provider Name and Address Organization Details Last Updated DateTime 10/17/2022 41 kg/m2 ASHU Celaya [address], [facility] [address], [place], [address], [facility] [employer] [facility] 10/17/2022 16:34:43 Date Recorded Body height Body temperature Body mass index (BMI) Body weight Respiratory rate Oxygen saturation Oxygen saturation in Arterial blood by Pulse oximetry Heart rate Systolic blood pressure Diastolic blood pressure Provider Name and Address Organization Details Last Updated DateTime 3 167.64 cm 97.2 [degF] 37.1 kg/m2 818288. 81 g 16 /min 98 % 98 % 95 /min 122 mm[Hg] 80 mm[Hg] SEUN Kay MD [facility] [employer] [facility] 3 10:12:31 Social History Question Answer Notes LastModified by Organizat ion Details LastModified Time Tobacco Smoking Status Never Smoker Not Available [facility] 09/06/2022 16:57:08 Do You Have An Advance Directive? No [id number] Information not available 09/06/2022 What Is Your Level Of Alcohol Consumption? Occasional MIGRATION.[id number] Information not available 09/06/2022 What Is Your Level Of Caffeine Consumption? None MIGRATION.[id number] [id number] Information not available 09/06/2022 In The 14 Days Before Symptom Onset, Have You Had Close Contact With A Laboratory-confir med COVID-19 While That Case Was Ill? No MIGRATION.[id number] Information not available 09/06/2022 In The 14 Days Before Symptom Onset, Have You Had Close Contact With A Person Who Is Under Investigation For COVID-19 While That Person Was Ill? No MIGRATION.[id number] Information not available 09/06/2022 Are You Currently Employed? Yes [email or web address] Information not available 10/16/2022 What Type Of Diet Are You Following? REGULAR MIGRATION.81711 [id number] Information not available 09/06/2022 What Is Your Occupation? [employer] MIGRATION.35869 39115 Information not available 09/06/2022 Have There Been Any Changes To Your Family Or Social Situation? No MIGRATION.80940 [id number] Information not available 09/06/2022 Are There Any Guns Present In Your Home? Yes MIGRATION.22364 65189 Information not available 09/06/2022 Do You Use Insect Repellent Routinely? No [email or web address] Information not available 10/16/2022 Do You Have A Medical Power Of Relocation Coordinator? No [email or web address] Information not available 10/16/2022 What Was The Date Of Your Most Recent Tobacco Screening? 02/13/2022 MIGRATION.31413 [id number] Information not available 09/06/2022 What Is Your Relationship Status? Single MIGRATION.20109 09431 Information not available 09/06/2022 Do You Use Your Seat Belt Or Car Seat Routinely? Yes MIGRATION.10700 16951 Information not available 09/06/2022 Do You Have Smoke And Carbon Monoxide Detectors In Your Home? Yes MIGRATION.32015 66459 Information not available 09/06/2022 Do You Use Any Illicit Or Recreational Drugs? No MIGRATION.27158 96077 Information not available 09/06/2022 Do You Use Sunscreen Routinely? Yes MIGRATION.86185 30455 Information not available 09/06/2022 Have You Recently Traveled Abroad? No MIGRATION.88543 24822 Information not available 09/06/2022 Do You Have Any Dietary Restrictions? No MIGRATION.52412 23343 Information not available 09/06/2022 Do You Or Have You Ever Used Any Other Forms Of Tobacco Or Nicotine? No MIGRATION.82987 68659 Information not available 09/06/2022 Sex: Female Functional Status Question Answer Note LastModified by Organizat ion Details LastModified Time What is your exercise level? Moderate [id number] Information not available 09/06/2022 Mental Status None recorded. Family History Relationship Description Onset Age of this Age Resolved Age Notes LastModified by Organization Details LastModified Time Father General health good MIGRATION.[id number] Not available 09/06/2022 16:57:23 Medical History No medical history recorded. Gynecological History Statement/Question Response Date of Last Pap 07/09/2017 Date of Last Mammogram 07/09/2017 Obstetrics History GPAL:G 0 P 0 0 0 0 Immunizations Vaccine Type Date Status Note Provider Nam renetta and Address Organization Details Recorded Time tetanus toxoid, unspecified formulation 7 completed Not Available [facility] 09/06/2022 16:59:50 pneumococcal, unspecified formulation 3 completed Not Available [facility] 09/06/2022 16:59:50 Past Encounters Encounter ID Performer Location Encounter Start Date Encounter Closed Date Diagnosis/Indication Diagnosis SNOMED-CT Code Diagnosis ICD10 Code Diagnosis Note [id number] [facility] [address] [place] [address] 09/19/2021 00:00:00 10/06/2021 00:05:50 [id number] [facility] [address] [place] [address] 12/07/2021 00:00:00 01/05/2022 22:49:37 [id number] [facility] [place] [address] [place] [address] 02/13/2022 00:00:00 03/08/2022 09:58:47 [id number] [facility] [address] [place] [address] 06/21/2022 00:00:00 07/06/2022 09:23:48 [id number] ASHU Celaya [facility] [address] [place] [address] 10/17/2022 15:59:44 10/17/2022 16:58:22 Adult health examination 708178082 Z00.01 annual wellness completed. Generalize d anxiety disorder 56674771 F41.1 stable on buspar 7.5mg bid. Insomnia 569892105 G47.0 0 Rx for trazodone 100mg qhs. may take 2 if needed. Obesity 190697743 E66.9 start Wegovy 0.25mg weekly dose. [id number] ASHU Cleaya [facility] [place] [address] [place] [address] 04/30/2023 10:05:45 04/30/2023 10:40:50 Generalized anxiety disorder 82329923 F41.1 stable on buspar 7.5mg bid. refill given. Insomnia 091262023 G47.0 0 Trial of Dayvigo 10mg daily if insurance will approve Obesity 458320171 E66.9 doing great on wegovy 1.7mg weekly, loss of 25 pounds since late october Long-term drug therapy 960667192 Z79.899 routine cmp , cbc and tfs due Cholesterol screening 27 1837206 Z13.220 fasting lipids ordered. Diabetes m ellitus screening 603926602 Z13.1 screening a1c due Health Concerns Section Related Observation LastModified by Organization Detai ls LastModified Time None Recorded Concern Status LastModified by Organization Details LastModified Time None Recorded Advance Directives Directive N: Payers Encounter Date Sequence Insurance Name Policy Number Policy Pineda Covered Member ID Pineda Member ID Guarantor Name 10/17/2022 1 [facility] [id number] Viraj Saenz [id number] Jagruti Saenz 04/30/2023 1 [facility] [id number] Viraj Saenz [id number] Jagruti Saenz Notes Date Note Type Note Provider Name and Address Organization Details Recorded Time 2 text/html Anxiety/DepressionReporte d bypatient.Quality:[facility] anxiety Severity:denies suicidal ideations; able to maintain relationships; does not interfere with activities of daily living Context:no major life stressors Associated Symptoms:denies homicidal ideations; no significant weight gain; no significant weight loss; no visual/auditory hallucinations; no delusions; no shortness of breath; mood good; no anxiety; no crying spells; no panic; no isolation; sleeping well; appetite good; energy good; no apathy; maintaining functionalityGeneric HPI TemplateReported bypatient.Notes:Pt wants to discuss Wegovy Not Available [facility] [employer] [facility] 01/05/2022 22:49:37 2 text/html Generalized Anxiety DisorderReported bypatient.Associated Symptoms:no difficulty concentrating; no difficulty controlling worry; no difficulty swallowing; no anxiety; no sweating; no hot flashes; no chest pain; no increased heart rate; no shortness of breath; no nausea; no diarrhea; no fatigue; no irritability; no muscle tension; no dizziness; no muscle aches; no trembling; no twitching; no exaggerated startle response; no headaches; no restlessness; no sleep disturbancesNotes:buspar 5mg bid has helped some Not Available [employer] 03/08/2022 09:58:47 2 text/html CoughReported bypatient.Quality:non productive Severity:worsening Duration:acute (<3 weeks) Onset/Timing:actual date: (Sunday) Context:non-smoker Modifying Factors:OTC medication (but not helping) Associated Symptoms:no fever; no chest pain; no heartburn; no vomiting; no edema; no agitation; no wheezing; no sputum production; no chest wall tenderness; no throat clearing; no dyspnea at rest or exertion;chills;post nasal drip;shortness of breath(heaviness);nasal discharge; body aches, post nasal drip Not Available [employer] 07/06/2022 09:23:48 3 text/html Anxiety, Generalized DisorderReported bypatient.Associated Symptoms:no difficulty concentrating; no difficulty controlling worry; no difficulty swallowing; no anxiety; no excessive sweating; no hot flashes; no palpitations; no shortness of breath; no nausea; no diarrhea; no fatigue; no irritability; no muscle tension; no muscle aches; no trembling; no twitching; no headaches; no restlessness; no sleep disturbancesInsomniaRepor nhi bypatient.Severity:same; moderate Modifying Factors:prescription medication Associated Symptoms:no anxiety; no snoring; no depression; no known sleep apnea; no pain; no dyspnea; no urinary frequency; legs do not feel restless ASHU Celaya [address], [address], [employer] 11/04/2022 17:22:06 3 text/html Anxiety/DepressionReporte d bypatient.Quality:doesnt matter time of day. Severity:denies suicidal ideations; able to maintain relationships; does not interfere with activities of daily living Duration:symptoms lasting over 2 weeks Onset/Timing:still present Context:no major life stressors Associated Symptoms:denies homicidal ideations; no significant weight gain; no significant weight loss; no visual/auditory hallucinations; no delusions; no shortness of breath ASHU Celaya [address] [facility] [address], [place], [address], [facility] 05/06/2023 12:18:40 OBGyn Episode No OBEpisode recorded.
[2024-09-26 08:48] LABS: Anion Gap 8 mmol/L (4-12); Blood Urea Nitrogen 11 mg/dL (7-17); Calcium 9.5 mg/dL (8.4-10.2); Carbon Dioxide 25 mmol/L (22-30); Chloride 104 mmol/L (98-107); Estimated Glomerular Filt Rate > 60; Glucose 94 mg/dL (65-110); Potassium 4.4 mmol/L (3.4-5.0); Sodium 137 mmol/L (137-145)
== END 2024-09-26 07:57 | disposition home or self-care (01) ==
LOC: ANHSURGERY 08:00
PROVIDERS: Anesthesiology; PCP Physician Assistant; Visit Provider Obstetrics & Gynecology
DX: Z01.818 Encounter for other preprocedural examination (principal); N92.1 Excessive and frequent menstruation with irregular cycle; Z79.899 Other long term (current) drug therapy
CPT/HCPCS: 36415; 80048; 86850; 86900; 86901

== ENCOUNTER 2024-10-07 01:29 | Day surgery (SDC) | payer OTHER, SELFPAY ==
[2024-09-24 12:48] VITALS: BMI 41.5
--- NOTE | 2024-09-24 13:01 | PC.NURSE ---
Report to the Outpatient Waiting Room, entrance under the green pavilion located off [facility], at time 12:00p.m. on date 10/07/2024. Planned Procedure Time: 2:00p.m.? Time changes happen often and if your time is changed the preop area will call you the afternoon before. - You and your visitor will be asked to self-screen and do not enter if you have any COVID symptoms. Please call surgeon if you need to reschedule. - A mask is optional within the hospital at this time. Patients may have clear liquids (water, carbonated beverages, clear teas, apple juice) until 3 hours prior to surgery with a maximum of 20 ounces. - No food from midnight until time of surgery and no smoking, or chewing tobacco (or any form of nicotine). No chewing gum, candy or mints. - Infants may have breast milk until 4 hours before surgery, infant formula 6 hours prior to surgery. - Children will be allowed to drink immediately following surgery.? If applicable, please bring a bottle or sippy cup to assist with drinking. Juice, water, soda, and popsicles are readily available.? For infants on formula, please bring formula the day of surgery.? Pacifiers are allowed. Take only the following medications with a SIP of water on the morning of surgery: buspirone DO NOT STOP ANY OF YOUR OTHER PRESCRIPTION MEDICATIONS PRIOR TO SURGERY EXCEPT THE FOLLOWING Hold all vitamins and supplements for 3 days per anesthesiologist. Medications to discontinue per physician N/A Date to take last dose N/A Please no make-up, nail kyrgyz, hairspray, perfume, deodorant, or body powder the day of surgery.? No jewelry (including any body piercings) or valuables the day of surgery, leave them at home.? Please take a shower or bath the night before, or the morning of, surgery with an antibacterial soap.? Wear comfortable, loose fitting clothing.? Children are encouraged to wear pajamas. - Jewelry must be removed prior to entering the operating room.? Rings and piercings that are not removed may be cut off. - The hospital will not accept responsibility for valuables.? - Please leave all valuables, including medications, at home the day of surgery. If you are going home after surgery, a licensed hearse driver must drive you home.? - NO public transportation without another adult if you receive anesthesia. - We recommend that an adult stay with you for 24 hours following discharge. - We also recommend that you do not drive, make important decision, drink alcoholic beverages, or take any drugs that were not prescribed by your health care provider for at least 24 hours after your discharge time. For Pediatric surgeries, we recommend two adults accompany the child home. Follow any additional instructions given to you from your surgeon. Telephone instructions given to Jagruti Saenz and asked if any additional questions and then verbalized understanding. Patient advised to call surgeon office or pre surgery nurse liaison [phone] if any additional questions.
[2024-10-07] VITALS (10 sets, daily range): BP systolic 104–140; BP diastolic 66–91; PULSE 65–92; RESP 15–18; TEMP 36.3–36.8; O2SAT 97–100
--- OUTSIDE RECORDS SUMMARY | 2024-10-07 01:38 | XMS_ITS | Data Portability ---
Author Organization [facility] [employer], Main Office Address [address] [place] [address] Assessment No assessment recorded. Plan of Treatment [...] Orders buspirone 7.5 mg tablet 2022 023 [facility], [address], [place], [address], 3 10:38:48 Dayvigo 10 mg tablet 2022 023 [email or web address] [facility]79, [address], [place], [place], [id number], 3 18:08:48 Wegovy 0.25 mg/0.5 mL subcutaneou s pen injector 2022 023 [facility], [address], [place], [place], [id number], 3 08:56:47 trazodone 100 mg tablet 2022 023 [email or web address] [facility], [address], [place], [place], [id number], 3 10:33:06 Patient TargetsNo targets recorded. Patient [...] pg/mL will have sympt oms. Not Available [facility] [address] [place], [address], 12/12/2021 15:26:29 12/11/19 22 12/12/2021 VITAM IN B12/F OLATE , SERUM PANEL folate, serum 8.5 NG/mL normal Refer ence Range Low: <3.4 Borde rline : 3.4-5 .4 Clarisse l: >5.4 Not Available [facility] [address] [place], [address], 12/12/2021 15:26:29 12/11/19 22 12/12/2021 CBC (INCL UDES DIFF/ PLT) white blood cell count 6.3 thous and/u L 3.8-10 .8 normal Not Available [address], [address], 12/12/2021 15:26:29 12/11/19 22 12/12/2021 CBC (INCL UDES DIFF/ PLT) red blood cell count 4.57 anastacia on/uL 3.80-5 .10 normal Not Available [address], [address], 12/12/2021 15:26:29 12/11/19 22 12/12/2021 CBC (INCL UDES DIFF/ PLT) hemoglobin 13.6 g/dL 11.7-1 5.5 normal Not Available [address], [address], 12/12/2021 15:26:29 12/11/19 22 12/12/2021 CBC (INCL UDES DIFF/ PLT) hematocrit 42.1 % 35.0-4 5.0 normal Not Available [address], [address], 12/12/2021 15:26:29 12/11/19 22 12/12/2021 CBC (INCL UDES DIFF/ PLT) MCV 92.1 fL 80.0-1 00.0 normal Not Available [address], [address], 12/12/2021 15:26:29 12/11/19 22 12/12/2021 CBC (INCL UDES DIFF/ PLT) MCH 29.8 pg 27.0-3 3.0 normal Not Available [address], [address], 12/12/2021 15:26:29 12/11/19 22 12/12/2021 CBC (INCL UDES DIFF/ PLT) MCHC 32.3 g/dL 32.0-3 6.0 normal Not Available [address], [address], 12/12/2021 15:26:29 12/11/19 22 12/12/2021 CBC (INCL UDES DIFF/ PLT) RDW 12.3 % 11.0-1 5.0 normal Not Available [address], [address], 12/12/2021 15:26:29 12/11/19 22 12/12/2021 CBC (INCL UDES DIFF/ PLT) platelet count 195 thous and/u L 140-40 0 normal Not Available [address], [address], 12/12/2021 15:26:29 12/11/19 22 12/12/2021 CBC (INCL UDES DIFF/ PLT) MPV 11.8 fL 7.5-12 .5 normal Not Available [address], [address], 12/12/2021 15:26:29 12/11/19 22 12/12/2021 CBC (INCL UDES DIFF/ PLT) absolute neutrophils 3635 cells /uL 1500-7 800 normal Not Available [address], [address], 12/12/2021 15:26:29 12/11/19 22 12/12/2021 CBC (INCL UDES DIFF/ PLT) absolute lymphocytes 2010 cells /uL 850-39 00 normal Not Available [address], [address], 12/12/2021 15:26:29 12/11/19 22 12/12/2021 CBC (INCL UDES DIFF/ PLT) absolute monocytes 536 cells /uL 200-95 0 normal Not Available [address], [address], 12/12/2021 15:26:29 12/11/19 22 12/12/2021 CBC (INCL UDES DIFF/ PLT) absolute eosinophils 69 cells /uL 15-500 normal Not Available [facility] [address] [place], [address], 12/12/2021 15:26:29 12/11/19 22 12/12/2021 CBC (INCL UDES DIFF/ PLT) absolute basophils 50 cells /uL 0-200 normal Not Available [facility] [address], [address], 12/12/2021 15:26:29 12/11/19 22 12/12/2021 CBC (INCL UDES DIFF/ PLT) neutrophils 57.7 % normal Not Available [facility] [address], [address], 12/12/2021 15:26:29 12/11/19 22 12/12/2021 CBC (INCL UDES DIFF/ PLT) lymphocytes 31.9 % normal Not Available [facility] [address], [address], 12/12/2021 15:26:29 12/11/19 22 12/12/2021 CBC (INCL UDES DIFF/ PLT) monocytes 8.5 % normal Not Available [facility] [address], [address], 12/12/2021 15:26:29 12/11/19 22 12/12/2021 CBC (INCL UDES DIFF/ PLT) eosinophils 1.1 % normal Not Available [facility] [address], [address], 12/12/2021 15:26:29 12/11/19 22 12/12/2021 CBC (INCL UDES DIFF/ PLT) basophils 0.8 % normal Not Available [facility] [address], [address], 12/12/2021 15:26:29 12/11/19 22 12/12/2021 T4, FREE T4, free 1.1 NG/dL 0.8-1. 8 normal Not Available [facility] [address] [place] [address], [address], 12/12/2021 15:26:28 12/11/19 22 12/12/2021 TSH TSH 1.81 mIU/L normal Refer ence Range > or = 20 Years 0.40- 4.50 Pregn sarah Range s First trime ster 0.26- 2.66 Secon d trime ster 0.55- 2.73 Third trime ster 0.43- 2.91 Not Available [address], [address], 12/12/2021 15:26:27 12/11/19 22 12/12/2021 MAGNE SIUM magnesium 2.0 mg/dL 1.5-2. 5 normal Not Available [address], [address], 12/12/2021 15:26:26 12/11/19 22 12/12/2021 HEMOG LOBIN [...] Care in Diabe selam(A DA). Not Available [address], [address], 12/12/2021 15:26:26 12/11/19 22 12/12/2021 COMPR EHENS ANGELA METAB OLIC PANEL glucose 80 mg/dL 65-99 normal Fasti ng refer ence inter rohit Not Available [facility] [address] [address] [place], [address], 12/12/2021 15:26:25 12/11/19 22 12/12/2021 COMPR EHENS ANGELA METAB OLIC PANEL urea nitrogen (BUN) 10 mg/dL 7-25 normal Not Available [address], [address], 12/12/2021 15:26:25 12/11/19 22 12/12/2021 COMPR EHENS ANGELA METAB OLIC PANEL creatinine 0.69 mg/dL 0.50-1 .10 normal Not Available [address], [address], 12/12/2021 15:26:25 12/11/19 22 12/12/2021 COMPR EHENS ANGELA METAB OLIC PANEL eGFR non-afr. irish 114 mL/mi n/1.7 3m2 > or = 60 normal Not Available [address] [address] [place], [address], 12/12/2021 15:26:25 12/11/19 22 12/12/2021 COMPR EHENS ANGELA METAB OLIC PANEL eGFR 133 mL/mi n/1.7 3m2 > or = 60 normal Not Available [facility] [address], [address], 12/12/2021 15:26:25 12/11/19 22 12/12/2021 COMPR EHENS ANGELA METAB OLIC PANEL BUN/creatini ne ratio not applic able (calc ) 6-22 Not Available [address], [address], 12/12/2021 15:26:25 12/11/19 22 12/12/2021 COMPR EHENS ANGELA METAB OLIC PANEL sodium 138 mmol/ L 135-14 6 normal Not Available [address], [address], 12/12/2021 15:26:25 12/11/19 22 12/12/2021 COMPR EHENS ANGELA METAB OLIC PANEL potassium 4.0 mmol/ L 3.5-5. 3 normal Not Available [address], [address], 12/12/2021 15:26:25 12/11/19 22 12/12/2021 COMPR EHENS ANGELA METAB OLIC PANEL chloride 102 mmol/ L 98-110 normal Not Available [address], [address], 12/12/2021 15:26:25 12/11/19 22 12/12/2021 COMPR EHENS ANGELA METAB OLIC PANEL carbon dioxide 28 mmol/ L 20-32 normal Not Available [address], [address], 12/12/2021 15:26:25 12/11/19 22 12/12/2021 COMPR EHENS ANGELA METAB OLIC PANEL calcium 9.3 mg/dL 8.6-10 .2 normal Not Available [address], [address], 12/12/2021 15:26:25 12/11/19 22 12/12/2021 COMPR EHENS ANGELA METAB OLIC PANEL protein, total 7.0 g/dL 6.1-8. 1 normal Not Available [address], [address], 12/12/2021 15:26:25 12/11/19 22 12/12/2021 COMPR EHENS ANGELA METAB OLIC PANEL albumin 4.1 g/dL 3.6-5. 1 normal Not Available [address], [address], 12/12/2021 15:26:25 12/11/19 22 12/12/2021 COMPR EHENS ANGELA METAB OLIC PANEL globulin 2.9 g/dL_ (calc ) 1.9-3. 7 normal Not Available [address], [address], 12/12/2021 15:26:25 12/11/19 22 12/12/2021 COMPR EHENS ANGELA METAB OLIC PANEL albumin/glob ulin ratio 1.4 (calc ) 1.0-2. 5 normal Not Available [address], [address], 12/12/2021 15:26:25 12/11/19 22 12/12/2021 COMPR EHENS ANGELA METAB OLIC PANEL bilirubin, total 0.4 mg/dL 0.2-1. 2 normal Not Available [address], [address], 12/12/2021 15:26:25 12/11/19 22 12/12/2021 COMPR EHENS ANGELA METAB OLIC PANEL alkaline phosphatase 45 U/L 31-125 normal Not Available [address], [address], 12/12/2021 15:26:25 12/11/19 22 12/12/2021 COMPR EHENS ANGELA METAB OLIC PANEL AST 23 U/L 10-30 normal Not Available [address], [address], 12/12/2021 15:26:25 12/11/19 22 12/12/2021 COMPR EHENS ANGELA METAB OLIC PANEL ALT 28 U/L 6-29 normal Not Available [facility] [address] [place], [address], 12/12/2021 15:26:25 12/11/19 22 12/12/2021 LIPID PANEL , STAND CHAYITO cholesterol, total 214 mg/dL <200 high Not Available [facility] [address] [place], [address], 12/12/2021 15:26:25 12/11/19 22 12/12/2021 LIPID PANEL , STAND CHAYITO HDL cholesterol 90 mg/dL > or = 50 normal Not Available [facility] [address] [address] [place], [address], 12/12/2021 15:26:25 12/11/19 22 12/12/2021 LIPID PANEL , STAND CHAYITO triglyceride s 67 mg/dL <150 normal Not Available [address] [address] [place], [address], 12/12/2021 15:26:25 12/11/19 22 12/12/2021 LIPID PANEL [...] 2068 (http ://ed ucati on.Qu Danial montoya [employer]. com/f aq/FA Q164) Not Available [facility] [address] [place], [address], 12/12/2021 15:26:25 12/11/19 22 12/12/2021 LIPID PANEL , STAND CHAYITO chol/HDLC ratio 2.4 (calc ) <5.0 normal Not Available [facility] [address] [place], [address], 12/12/2021 15:26:25 12/11/19 22 12/12/2021 LIPID PANEL , STAND CHAYITO non HDL cholesterol 124 mg/dL _(theo c) <130 normal For patie nts with diabe selam plus 1 major ASCVD risk facto r, treat ing to a non-H DL-C goal of <100 mg/dL (LDL- C of <70 mg/dL ) is consi haleyd a thera librado daniels optio n. Not Available [facility] [address] [address], [place], [address], 12/12/2021 15:26:25 06/21/20 22 06/21/2022 rapid strep group A, throa t STREP A negati ve Not Available [facility] [place] [address], [place], [address], 06/21/2022 15:53:17 06/21/20 22 06/21/2022 rapid flu (A+B) Flu A negati ve Not Available [facility] [place] [address], [place], [address], 06/21/2022 15:53:15 06/21/20 22 06/21/2022 rapid flu (A+B) Flu B negati ve Not Available [facility] [place] [address], [place], [address], 06/21/2022 15:53:15 Result Notes None recorded. Problems Name Problem SNOMED Code Status Onset Date Resolution Date Notes Provider Name and Address Organization Details Recorded Time Pain of right temporoman dibular joint 8494610925889 9107 Active 2021 Not Available [facility] 3 16:58:25 Insomnia 379104875 Active 2021 Not Available [facility] 3 16:58:25 Generalize d anxiety disorder 71969939 Active 2018 Not Available [facility] 3 16:58:25 Bronchitis 85532970 Active Not Available [facility] 3 16:58:25 Acute pharyngiti s 155458479 Active 2021 Not Available [facility] 3 16:58:25 Fever 539464256 Active 2021 Not Available [facility] 3 16:58:25 Postviral cough 037924385 Active 2021 Not Available [facility] 3 16:58:25 Viral syndrome 001761600 Active 2021 Not Available [facility] 3 16:58:25 Cough 88376506 Active Not Available [facility] 3 16:58:25 Vitamin B12 deficiency (non anemic) 58933855 Active 2021 Not Available [facility] 3 16:58:25 Palpitatio ns 85581200 Active 2021 Not Available [facility] 3 16:58:25 Obesity 860376768 Active 2022 ASHU Celaya [address] [facility], [facility] [address], [place], [address] , [facility] [employer] 3 16:52:08 Notes:COVID pos 09/02/21 Problem Notes None recorded. Procedures Surgical History Date Name Laterality Status Provider Name and Address Organization Details Recorded Time Appendectomy completed Not Available [facility] 09/06/2022 16:57:22 other completed Not Available [facility] 07/2022 16:57:22 Tonsillectomy completed Not Available [facility] 09/06/2022 16:57:22 Imaging Results None recorded. Procedure Notes None recorded. Medical Equipment None Reported. Allergies Allergen ID Allergen Name Allergen Category Reaction Reaction Severity Criticality Documentation Date Start Date Code Code System Note Provider Name and Address Organization Details Recorded Time 85011 acetamino phen / hydrocodo ne medicatio n Not available Not available Not available 09/06/2022 31441 2 RxNorm Not Available [facility] 3 16:59:55 39589 codeine medicatio n vomiting Not available Not available 09/06/2022 2670 RxNorm Not Available [facility] 3 16:59:55 Medications Name Sig Start Date [...] % 92 /min 16 /min 98 [degF] 215828. 58 g 114 mm[Hg] 68 mm[Hg] Not Available [facility] 3 16:57:42 Date Recorded Body mass index (BMI) Body height Oxygen saturation Oxygen saturation in Arterial blood by Pulse oximetry Heart rate Body temperature Body weight Systolic blood pressure Diastolic blood pressure Provider Name and Address Organization Details Last Updated DateTime 2 37.7 kg/m2 167.64 cm 98 % 98 % 89 /min 97.2 [degF] 480771. 9 g 114 mm[Hg] 74 mm[Hg] Not Available [facility] 3 16:57:42 Date Recorded Body mass index (BMI) Body height Oxygen saturation Oxygen saturation in Arterial blood by Pulse oximetry Heart rate Respiratory rate Body temperature Body weight Provider Name and Address Organization Details Last Updated DateTime 2 40 kg/m2 167.64 cm 98 % 98 % 110 /min 16 /min 97.6 [degF] 067955. 91 g Not Available [facility] 3 16:57:43 Date Recorded Body height Body weight Body temperature Heart rate Oxygen saturation Oxygen saturation in Arterial blood by Pulse oximetry Systolic blood pressure Diastolic blood pressure Provider Name and Address Organization Details Last Updated DateTime 3 167.64 cm 707954. 46 g 97.8 [degF] 64 /min 99 % 99 % 124 mm[Hg] 78 mm[Hg] Abida Monique, [facility] 3 16:25:25 Date Recorded Body mass index (BMI) Provider Name and Address Organization Details Last Updated DateTime 10/17/2022 41 kg/m2 ASHU Celaya [address], [facility] [address], [place], [address], [facility] [employer] [facility] 10/17/2022 16:34:43 Date Recorded Body height Body temperature Body mass index (BMI) Body weight Respiratory rate Oxygen saturation Oxygen saturation in Arterial blood by Pulse oximetry Heart rate Systolic blood pressure Diastolic blood pressure Provider Name and Address Organization Details Last Updated DateTime 3 167.64 cm 97.2 [degF] 37.1 kg/m2 233109. 81 g 16 /min 98 % 98 % 95 /min 122 mm[Hg] 80 mm[Hg] SEUN Kay [place] [employer] [facility] 3 10:12:31 Social History Question Answer Notes LastModified by Organizat ion Details LastModified Time Tobacco Smoking Status Never Smoker Not Available [facility] 09/06/2022 16:57:08 Do You Have An Advance Directive? No [id number] Information not available 09/06/2022 What Is Your Level Of Alcohol Consumption? Occasional [id number].[id number] Information not available 09/06/2022 What Is Your Level Of Caffeine Consumption? None MIGRATION.[id number] Information not available 09/06/2022 In The 14 Days Before Symptom Onset, Have You Had Close Contact With A Laboratory-confir med COVID-19 While That Case Was Ill? No [id number] Information not available 09/06/2022 In The 14 Days Before Symptom Onset, Have You Had Close Contact With A Person Who Is Under Investigation For COVID-19 While That Person Was Ill? No [id number] Information not available 09/06/2022 Are You Currently Employed? Yes [email or web address] Information not available 10/16/2022 What Type Of Diet Are You Following? REGULAR MIGRATION.49718 96952 Information not available 09/06/2022 What Is Your Occupation? [employer] MIGRATION.76019 63950 Information not available 09/06/2022 Have There Been Any Changes To Your Family Or Social Situation? No MIGRATION.23174 [id number] Information not available 09/06/2022 Are There Any Guns Present In Your Home? Yes MIGRATION.60644 52474 Information not available 09/06/2022 Do You Use Insect Repellent Routinely? No [email or web address] Information not available 10/16/2022 Do You Have A Medical Power Of Engineering Faculty Member? No [email or web address] Information not available 10/16/2022 What Was The Date Of Your Most Recent Tobacco Screening? 02/13/2022 MIGRATION.91061 [id number] Information not available 09/06/2022 What Is Your Relationship Status? Single MIGRATION.73323 47752 Information not available 09/06/2022 Do You Use Your Seat Belt Or Car Seat Routinely? Yes MIGRATION.97181 [address]4928 Information not available 09/06/2022 Do You Have Smoke And Carbon Monoxide Detectors In Your Home? Yes MIGRATION.31451 52301 Information not available 09/06/2022 Do You Use Any Illicit Or Recreational Drugs? No MIGRATION.83928 82475 Information not available 09/06/2022 Do You Use Sunscreen Routinely? Yes MIGRATION.11940 35260 Information not available 09/06/2022 Have You Recently Traveled Abroad? No MIGRATION.38527 53712 Information not available 09/06/2022 Do You Have Any Dietary Restrictions? No MIGRATION.61553 43800 Information not available 09/06/2022 Do You Or Have You Ever Used Any Other Forms Of Tobacco Or Nicotine? No MIGRATION.57650 49127 Information not available 09/06/2022 Sex: Female Functional Status Question Answer Note LastModified by Organizat ion Details LastModified Time What is your exercise level? Moderate [id number] Information not available 09/06/2022 Mental Status None recorded. Family History Relationship Description Onset Age of this Age Resolved Age Notes LastModified by Organization Details LastModified Time Father General health good [id number] Not available 09/06/2022 16:57:23 Medical History No [...] pneumococcal, unspecified formulation 3 completed Not Available [facility] 09/06/2022 16:59:50 Past Encounters Encounter ID Performer Location Encounter Start Date Encounter Closed Date Diagnosis/Indication Diagnosis SNOMED-CT Code Diagnosis ICD10 Code Diagnosis Note [id number] [facility] [place] [address] [place] [address] 09/19/2021 00:00:00 10/06/2021 00:05:50 [id number] [facility] [place] [address] [place] [address] 12/07/2021 00:00:00 01/05/2022 22:49:37 [id number] [facility] [place] [address] [place] [address] 02/13/2022 00:00:00 03/08/2022 09:58:47 [id number] [facility] [place] [address] [place] [address] 06/21/2022 00:00:00 07/06/2022 09:23:48 [id number] ASHU Celaya [facility] [place] [address] [place] [address] 10/17/2022 15:59:44 10/17/2022 16:58:22 Adult health examination 804994734 Z00.01 annual wellness completed. Generalize d anxiety disorder 33698809 F41.1 stable on buspar 7.5mg bid. Insomnia 728717247 G47.0 0 Rx for trazodone 100mg qhs. may take 2 if needed. Obesity 931779129 E66.9 start Wegovy 0.25mg weekly dose. [id number] ASHU Celaya [facility] [place] [address] [place] [address] 04/30/2023 10:05:45 04/30/2023 10:40:50 Generalized anxiety disorder 94204503 F41.1 stable on buspar 7.5mg bid. refill given. Insomnia 961417880 G47.0 0 Trial of Dayvigo 10mg daily if insurance will approve Obesity 421327596 E66.9 doing great on wegovy 1.7mg weekly, loss of 25 pounds since late october Long-term drug therapy 791574470 Z79.899 routine cmp , cbc and tfs due Cholesterol screening 27 4754849 Z13.220 fasting lipids ordered. Diabetes m ellitus screening 410376426 Z13.1 screening a1c due Health Concerns Section Related Observation LastModified by Organization Detai ls LastModified Time None Recorded Concern Status LastModified by Organization Details LastModified Time None Recorded Advance Directives Directive N: Payers Encounter Date Sequence Insurance Name Policy Number Policy Pineda Covered Member ID Pineda Member ID Guarantor Name 10/17/2022 1 [facility] [id number] Viraj Saenz [id number] Jagruti Saenz 04/30/2023 1 [facility] [id number] Viraj Saenz [id number] Jagruti Saenz Notes Date Note Type Note Provider Name and Address Organization Details Recorded Time 2 text/html Anxiety/DepressionReporte d bypatient.Quality:[facility] ed anxiety Severity:denies suicidal ideations; able to [...] bypatient.Notes:Pt wants to discuss Wegovy Not Available [facility] [employer] [facility] 01/05/2022 22:49:37 2 text/html Generalized Anxiety [...] 5mg bid has helped some Not Available [employer] 03/08/2022 09:58:47 2 text/html CoughReported bypatient.Quality:non productive [...] body aches, post nasal drip Not Available [facility] 07/06/2022 09:23:48 3 text/html Anxiety, Generalized DisorderReported [...] do not feel restless ASHU Celaya [address], [address], [employer] 11/04/2022 17:22:06 3 text/html Anxiety/DepressionReporte d bypatient.Quality:doesnt matter time of day. Severity:denies suicidal ideations; able to maintain relationships; does not interfere with activities of daily living Duration:symptoms lasting over 2 weeks Onset/Timing:still present Context:no major life stressors Associated Symptoms:denies homicidal ideations; no significant weight gain; no significant weight loss; no visual/auditory hallucinations; no delusions; no shortness of breath ASHU Celaya [address] [facility], [facility] [address], [place], [address], [facility] 05/06/2023 12:18:40 OBGyn Episode No OBEpisode recorded.
--- NOTE | 2024-10-07 11:45 | PM.IMHP ---
H&P: HPI History of Present Illness Date/Time: 10/07/24 11:45 Chief Complaint: Fibroids and pain Narrative: 34 y/o nulligravida with a fibroid uterus and menometrorrhagia. Ultrasound exam shows a myomatous uterus. Office hysteroscopy unremarkable, and endometrial sampling negative. She has tried medical management, and continues to have irregular and heavy bleeding. She does not desire future childbearing. She is interested in definitive management with hysterectomy. Review of Systems Review of Systems: All systems reviewed & are unremarkable except as noted in HPI and below PMFSH Past Medical History Medical History Lupus (systemic lupus erythematosus) Surgical History Surgical History History of appendectomy History of tonsillectomy Social History Social History Smoking status: Never smoker Alcohol intake: current Drinks per week: 3 Substance use: current Substance use type: marijuana Other substance usage details: edibles 3-5 times a week Living arrangements: with family Meds Home Medications and Allergies Home Medications ?Medication ?Instructions ?Recorded ?Confirmed ?Type buspirone 5 mg tablet 5 mg PO DAILY 02/08/22 09/24/24 History spironolactone 100 mg tablet 100 mg PO DAILY 02/08/22 09/24/24 History cyclobenzaprine 10 mg tablet 10 mg PO Q8H 09/24/24 09/24/24 History eszopiclone 3 mg tablet 3 mg PO HS 09/24/24 09/24/24 History Allergies Allergy/AdvReac Type Severity Reaction Status Date / Time codeine AdvReac Nausea and Verified 09/24/24 12:43 Vomiting Exam Const: Orientation/consciousness: patient oriented x3 Other: Well-developed, well-nourished female in no acute distress. Neck: Thyroid: thyroid normal Lymphatic: no lymphadenopathy noted (in neck, axilla or inguinal nodes) Resp: Effort & Inspection: normal respiratory effort Auscultation: clear to auscultation bilaterally Cardio: Rate: regular rate Rhythm: regular rhythm Heart sounds: S1 normal heart sound present and S2 normal heart sound present GI: Other: ABD: Soft, nontender, nondistended. No guarding or rebound tenderness. No hepatosplenomegaly. : General: Yes no CVA tenderness Other: External genitalia: normal female hair distribution, without lesion. Urethral meatus: no lesion, non prolapsed. Bladder: no mass, nontender Vagina: well-estrogenized, without lesion or discharge. No cystocele or rectocele. Cervix: no lesion or discharge. Uterus: small, anteverted, freely mobile, nontender Adnexa: no mass or tenderness. Anus/perineum: no lesions, nontender Back/Spine/Pelvis: Back: no CVA tenderness Skin: General skin exam: normal color and no rashes or lesions noted Neuro: General: patient oriented x3 Extrem: Other: Extremities: nontender with no edema Psych: Mental Status: mental status grossly normal Affect: normal affect Assessment and Plan Assessment and plan (1) Menometrorrhagia: Code(s): N92.1 - Excessive and frequent menstruation with irregular cycle Status: Acute Assessment and Plan: A: Menometrorrhagia in the setting of a fibroid uterus, refractory to conservative management. P: We have reviewed medical as well as surgical approaches, and she is interested in the latter. I have offered her robotic assisted total vaginal hysterectomy with bilateral salpingectomies. She understands risks of surgery to include risks of anesthesia, risks of pain, infection, bleeding, blood products, thromboembolic phenomena and damage to adjacent structures such as bowel, bladder, ureters, blood vessels and nerves. She understands hysterectomy will render her permanently sterile. She understands all these risks and elects to proceed with surgery. (2) Fibroid uterus: Code(s): D25.9 - Leiomyoma of uterus, unspecified Status: Acute
[2024-10-07] MEDS: LACTATED RINGERS 1,000 ML 30 ML IV CONT ×2 (12:37→16:12)
[2024-10-07] MEDS: ACETAMINOPHEN 500 MG TABLET 1000 MG PO ×2 (12:37→18:55)
[2024-10-07] MEDS: KETOROLAC 15 MG/ML VIAL (*BKC) IV PUSH (12:38)
[2024-10-07 12:45] LABS: BEDSIDEPREGUCG Negative (Negative)
[2024-10-07] MEDS: SCOPOLAMINE 1 MG PATCH 1 PATCH TRANSDERM (12:46)
[2024-10-07] MEDS: fentaNYL CITRATE INJ (*CRX) 100 MCG/2 ML VIAL 25 MCG IV PUSH ×9 (13:00→17:11)
--- NOTE | 2024-10-07 13:00 | WPDANESEPPF ---
Anes - Initial Pre Proc Eval Procedure: Operation Date: 10/07/24 14:00 Proposed Procedures p Robotic Assisted Total Vaginal Hysterectomy with Bilateral Salpingectomy - Bartolome Sandoval MD Date/Time: 10/07/24 13:00 Surgeon: Bartolome Sandoval MD Pre Op Diagnosis: fibroids, pain, irregular and excessive bleeding Patient Data Age: 34 Gender: F Height: 1.65 m Weight: 121 kg Last Vital Signs Temp 36.6 C 10/07/24 12:39 Pulse 92 10/07/24 12:39 Resp 16 10/07/24 12:39 BP 134/84 10/07/24 12:39 Pulse Ox 100 10/07/24 12:39 O2 Del Method Room Air 10/07/24 12:39 Allergies Allergy/AdvReac Type Severity Reaction Status Date / Time codeine AdvReac Nausea and Verified 10/07/24 12:36 Vomiting Home Medications ?Medication ?Instructions ?Recorded ?Confirmed ?Type buspirone 5 mg tablet 5 mg PO DAILY 02/08/22 09/24/24 History spironolactone 100 mg tablet 100 mg PO DAILY 02/08/22 09/24/24 History cyclobenzaprine 10 mg tablet 10 mg PO Q8H 09/24/24 09/24/24 History eszopiclone 3 mg tablet 3 mg PO HS 09/24/24 09/24/24 History Laboratory Tests 10/07/24 12:39 POC Urine HCG, Qual Negative (Negative) Patient hx anesthesia problems: none Family hx anesthesia problems: none Results Review: All pre-operative results and documents have been reviewed as part of the pre-operative evaluation. [facility] Past Medical History Medical History (Updated 10/07/24 @ 13:07 by Abdulkadir Juan DO) Anxiety TMJ (dislocation of temporomandibular joint) Lupus (systemic lupus erythematosus) Surgical History Surgical History History of appendectomy History of tonsillectomy Social History Social History Smoking status: Never smoker Alcohol intake: current Drinks per week: 3 Substance use: current Substance use type: marijuana Other substance usage details: edibles 3-5 times a week Living arrangements: with family Anes - Eval Final PreProcedure Day of Procedure 10/07/24 13:00 Patient weight: morbidly obese Heart: regular rate and rhythm Lungs: clear to auscultation Airway: Mallampati scale class III Neurological: alert and oriented Last oral intake: >/= 8 hours ASA classification: III Emergent: no Anesthetic plan: proceed Anesthesia type and monitoring: general ETT and standard monitoring Results Review: All pre-operative results and documents have been reviewed as part of the pre-operative evaluation. Informed Consent: The patient's anesthetic plan and its attendant risks and benefits were discussed with the patient/family/POA. Questions were solicited and answers provided to the satisfaction of the patient/family/POA.
--- NOTE | 2024-10-07 13:54 | WPDHPUPDATE1 ---
History and Physical Update Update Date/Time: 10/07/24 13:54 History and Physical has been reviewed, including an updated exam of the patient. There are NO changes in the patient's condition. Risks, benefits, and alternatives have been discussed and questions answered. Patient agrees to proceed with procedure.
[2024-10-07] MEDS: ceFAZolin 3 GM/D5W 100 ML 100 ML IVPB (14:25)
--- NOTE | 2024-10-07 15:55 | P.OP_ITS ---
Procedure Note - Detailed Date of Procedure 10/07/24 Pre-op Diagnosis Menometrorrhagia Fibroid uterus Post-op Diagnosis Same Procedure Performed Robotic assisted total vaginal hysterectomy with bilateral salpingectomies. Surgeon Bartolome Sandoval MD Anesthesia General Findings Adhesions between omentum and anterior abdominal wall. Uterus with anterior serosal fibroid. Otherwise, unremarkable uterus, tubes and ovaries. Description of Procedure The patient was taken to the operating room where general endotracheal anesthesia was administered. She was prepared and draped in the usual sterile fashion in the dorsal lithotomy position. The bladder was drained with Us catheter. The cervix was visualized and the anterior lip was grasped using a single-tooth tenaculum. The cervix was gently dilated using Hegar dilators. The FLORESITA 2 uterine manipulator was then placed and the tenaculum was removed. Gloves were changed and attention was turned to the abdomen. A supraumbilical skin incision was made with the scalpel. The Veress needle was advanced and pneumoperitoneum was administered using carbon dioxide gas. The bladeless trocar was then advanced. Intraperitoneal placement was confirmed using the laparoscope. Lateral ports and an public health assistant port were all placed using bladeless trocars under direct laparoscopic visualization. She was placed in Trendelenburg position and the patient cart was docked. I assumed the console. The omentum was dissected off the anterior abdominal wall to expose the pelvic anatomy. The ureters were visualized bilaterally. The round ligament on the right was divided. The Fallopian tube was dissected off the ovary, and the uteroovarian ligament was divided. The broad ligament was divided, skeletonizing the uterine artery on the right. The bladder was reflected away. The left side was similarly dissected. Colpotomy was performed circumferentially. The specimen was removed and passed off to be sent to pathology. The vaginal cuff was reapproximated using 0 Vicryl in interrupted [id number] fashion. The pelvis was irrigated copiously using warmed normal saline. Rigorous hemostasis was assured. Surgicel powder was applied to the vaginal cuff. The pedicles were inspected once again. The ports were then withdrawn and the gas was allowed to escape. The skin incisions were reapproximated using 4 0 Monocryl in interrupted subcuticular fashion. Dermaflex was applied externally. Sponge, lap, needle and instrument counts were correct. The patient was awakened and taken to the recovery room in stable condition. I was present and scrubbed through the entire procedure. Implants None Estimated Blood Loss 25 Drains Yes (Us) Packing No Pathology Yes (Uterus, cervix, Fallopian tubes) Complications None Condition Stable Disposition PACU
--- NOTE | 2024-10-07 15:58 | PM.DS ---
DS: Admitting Diagnosis Discharge Date 10/08/24 Admitting Diagnosis Menometrorrhagia Fibroid uterus DS: Discharge Diagnosis Discharge Diagnosis (1) Menometrorrhagia: Code(s): N92.1 - Excessive and frequent menstruation with irregular cycle Status: Acute (2) Fibroid uterus: Code(s): D25.9 - Leiomyoma of uterus, unspecified Status: Acute DS: Summary Hospital Course Hospital Course: She underwent robotic assisted TVHBS, leaving the ovaries in situ. Postoperatively she did well. Her pain was well controlled. She tolerated a regular diet. She voided. She was ready to go home on POD1. Time Spent with Patient Time attestation: Total time spent providing and/or coordinating discharge services: DS: Data Data Completed and Pending Pending studies at discharge: Pending at discharge 10/07/24 15:39 Surgical [PTH] Routine Labs on day of discharge: Labs from last 24 hours 10/07/24 12:39 POC Urine HCG, Qual Negative Discharge Plan Discharge Patient Disposition: Home, Self-Care Discharge Instructions: Nothing in the vagina for 6 weeks. Call or return if temperature above 100.4? F, increased abdominal pain, increased vaginal bleeding or any new problems. Patient Language: [place] Stand Alone Forms: General Discharge Instructions Follow-up/Referrals: Bartolome Sandoval MD [Physician] - 2 Weeks Discharge Medications: New oxycodone-acetaminophen [Percocet] 5-325 mg tablet 1 - 2 tablet PO Q6H PRN (Reason: pain) Qty: 30 0RF Continued buspirone 5 mg tablet 5 mg PO DAILY spironolactone 100 mg tablet 100 mg PO DAILY eszopiclone 3 mg tablet 3 mg PO HS cyclobenzaprine 10 mg tablet 10 mg PO Q8H
[2024-10-07] MEDS: ONDANSETRON INJ 4 MG/2 ML VIAL IV PUSH (16:19)
[2024-10-07] MEDS: diphenhydrAMINE HCl INJ 50 MG/ML VIAL 12.5 MG IV PUSH ×2 (16:46→17:23)
--- NOTE | 2024-10-07 17:36 | PC.NURSE ---
This patient, Jagruti Saenz, was received from PACU on 10/07/24 at 1736. Patient/family oriented to unit policies and routines.
[2024-10-07] MEDS: DEXTROSE 5%/0.45% SOD CHL 1,000 ML 125 ML IV CONT (17:50)
[2024-10-07] MEDS: SIMETHICONE 80 MG TAB.CHEW PO (18:55)
[2024-10-07] MEDS: KETOROLAC 30 MG/ML VIAL (*BKC) IV PUSH (18:55)
[2024-10-07] MEDS: DOCUSATE SODIUM 100 MG CAPSULE PO (18:55)
[2024-10-07] MEDS: ENOXAPARIN 40 MG/0.4 ML SYRINGE SUB-Q (21:13)
[2024-10-07] MEDS: oxyCODONE HCL (*CRX) 5 MG TAB IR 10 MG PO (21:17)
[2024-10-08] MEDS: DEXTROSE 5%/0.45% SOD CHL 1,000 ML 125 ML IV CONT (01:45)
[2024-10-08] MEDS: ACETAMINOPHEN 500 MG TABLET 1000 MG PO ×2 (01:45→07:46)
[2024-10-08] MEDS: KETOROLAC 30 MG/ML VIAL (*BKC) IV PUSH ×2 (01:45→07:46)
[2024-10-08 03:00] VITALS: BP 115/67; PULSE 79; RESP 18; TEMP 36.4; O2SAT 97
[2024-10-08] MEDS: oxyCODONE HCL (*CRX) 5 MG TAB IR 10 MG PO (03:10)
[2024-10-08 04:54] LABS: Basophils Percent Auto 0.1 % (0.2-1.2); Hematocrit 40.9 % (37.0-47.0); Hemoglobin 12.2 g/dL (12.0-15.0); Immature Granulocyte Absolute 0.05 K/mm3 (0.00-0.031); Immature Granulocyte Percent A 0.4 % (0-0.5); Lymphocytes Absolute Auto 0.75 K/mm3 (0.9-3.2); Lymphocytes Percent Auto 5.8 % (18.3-44.2); Mean Corpuscular HGB Conc 29.8 g/dl (32-36); Mean Corpuscular Hemoglobin 30.3 pg (26-34); Mean Corpuscular Volume 101.7 fl (80-100); Monocytes Absolute Auto 0.7 K/mm3 (0.1-0.6); Monocytes Percent Auto 5.1 % (2.6-8.5); Neutrophils Absolute Auto 11.4 K/mm3 (1.3-6.7); Neutrophils Percent Auto 88.6 % (45.5-73.1); Platelet Count Result 217 k/mm3 (150-375); Red Blood Count 4.02 M/mm3 (4.2-5.4); Red Cell Distribution Width 12.7 % (11.5-14.5); White Blood Count 12.8 K/mm3 (4.5-10.0)
[2024-10-08 07:25] VITALS: BP 135/75; PULSE 78; RESP 16; TEMP 36.6; O2SAT 96
[2024-10-08] MEDS: SIMETHICONE 80 MG TAB.CHEW PO (07:46)
[2024-10-08] MEDS: DOCUSATE SODIUM 100 MG CAPSULE PO (07:46)
--- NOTE | 2024-10-08 08:53 | P.PNOB_ITS ---
[employer] - A/P Assessment and plan (1) Menometrorrhagia: Code(s): N92.1 - Excessive and frequent menstruation with irregular cycle Status: Acute Assessment and Plan: A: POD#1, doing well. P: Home to f/u 2 weeks. (2) Fibroid uterus: Code(s): D25.9 - Leiomyoma of uterus, unspecified Status: Acute Postoperative Procedures: Procedures Operation Date: 10/07/24 14:00 Actual Procedure Side Surgeon p Robotic Assisted Total Vaginal Hysterectomy with Bilateral Salpingectomy Bilateral Bartolome Sandoval MD Postoperative day: 1 Time Spent With Patient Time with patient: less than 15 minutes [employer]- PN:Subj Post-Op Subjective Date/time seen: 10/08/24 08:54 Interval history: Pain OK. Tolerating diet. Voiding. Would like to go home. Exam 2 Narrative: AVSS I/O OK ABD soft, nontender. Incisions c/d/i. EXT nontender [employer] - PN: Obj Data Vital Signs Vital Signs: Vital Signs - 24 hr 10/07/24 12:39 10/07/24 16:12 10/07/24 16:25 Temperature 36.6 C 36.8 C Pulse Rate 92 74 71 Respiratory Rate 16 16 18 Blood Pressure 134/84 120/67 122/74 Pulse Oximetry 100 100 100 Oxygen Delivery Room Air Simple Face Mask Simple Face Mask Oxygen Flow Rate 8 8 10/07/24 16:40 10/07/24 16:55 10/07/24 17:10 Temperature Pulse Rate 65 68 69 Respiratory Rate 15 18 16 Blood Pressure 140/88 138/91 H 131/79 Pulse Oximetry 100 100 100 Oxygen Delivery Simple Face Mask Room Air Room Air Oxygen Flow Rate 8 10/07/24 17:25 10/07/24 17:50 10/07/24 18:55 Temperature 36.3 C L 36.8 C Pulse Rate 74 69 72 Respiratory Rate 15 18 18 Blood Pressure 131/86 109/68 108/66 Pulse Oximetry 97 100 100 Oxygen Delivery Room Air Oxygen Flow Rate 10/07/24 21:17 10/08/24 03:00 10/08/24 07:25 Temperature 36.7 C 36.4 C L 36.6 C Pulse Rate 74 79 78 Respiratory Rate 18 18 16 Blood Pressure 104/86 115/67 135/75 Pulse Oximetry 100 97 96 Oxygen Delivery Oxygen Flow Rate Intake/Output Intake/Output: Intake & Output 10/05/24 10/06/24 10/07/24 10/08/24 23:59 23:59 23:59 23:59 Intake Total 2100 1720 Output Total 200 2350 Balance 1900 -630 Meds/Results Medications: Active Medications Generic Name Dose Route Start Last Admin Trade Name Freq PRN Reason Stop Dose Admin Acetaminophen 1,000 mg 10/07/24 18:00 10/08/24 07:46 Acetaminophen 500 Mg Tablet PO 1,000 mg Q6HR JIMMY Administration Buspirone HCl 5 mg 10/08/24 09:00 Buspirone Hcl 5 Mg Tablet PO DAILY JIMMY Docusate Sodium 100 mg 10/07/24 17:28 10/08/24 07:46 Docusate Sodium 100 Mg Capsule PO 100 mg BID JIMMY Administration Enoxaparin Sodium 40 mg 10/07/24 22:00 10/07/24 21:13 Enoxaparin 40 Mg/0.4 Ml Syringe SUB-Q 40 mg Q24H JIMMY Administration Dextrose/Sodium Chloride 1,000 mls @ 125 mls/hr 10/07/24 17:28 10/08/24 01:45 Dextrose 5% Sodium Chloride 0.45% IV CONT 125 mls/hr .Q8H JIMMY Administration Ibuprofen 600 mg 10/08/24 12:00 Ibuprofen 600 Mg Tablet PO Q6HR JIMMY Naloxone HCl 0.1 mg 10/07/24 17:28 Naloxone Hcl 0.4 Mg/Ml Vial IV PUSH Q2M PRN Respiratory rate less than 10 Ondansetron HCl 4 mg 10/07/24 17:28 Ondansetron Inj 4 Mg/2 Ml Vial IV PUSH Q6H PRN Nausea And Vomiting Oxycodone HCl 5 mg 10/07/24 17:28 Oxycodone Hcl (*Crx) 5 Mg Tab Ir PO Q4H PRN Pain Rated 4-6 Oxycodone HCl 10 mg 10/07/24 17:28 10/08/24 03:10 Oxycodone Hcl (*Crx) 5 Mg Tab Ir PO 10 mg Q6H PRN Administration Pain Rated 7-10 Promethazine HCl 12.5 mg 10/07/24 16:48 Promethazine Hcl 25 Mg/Ml Ampul IV PUSH Q6H PRN Nausea Simethicone 80 mg 10/07/24 17:28 10/08/24 07:46 Simethicone 80 Mg Tab.Chew PO 80 mg TIDWM JIMMY Administration Labs 10/08/24 03:31 Labs: Laboratory Results - last 24 hr 10/07/24 10/08/24 12:39 03:31 WBC 12.8 H RBC 4.02 L Hgb 12.2 D Hct 40.9 MCV 101.7 H MCH 30.3 MCHC 29.8 L RDW 12.7 Plt Count 217 MPV 11.0 H Immature Gran % (Auto) 0.4 Neut % (Auto) 88.6 H Lymph % (Auto) 5.8 L [place] % (Auto) 5.1 Eos % (Auto) 0.0 Baso % (Auto) 0.1 L Lymph # (Auto) 0.75 L [place] # (Auto) 0.7 H Eos # (Auto) 0.0 Baso # (Auto) 0.0 Abs Immat Gran (auto) 0.05 H Absolute Neuts (auto) 11.4 H Absolute Nucleated RBC 0.000 Nucleated RBC % 0.0 POC Urine HCG, Qual Negative
[2024-10-08] MEDS: busPIRone HCL 5 MG TABLET PO (09:13)
== END 2024-10-08 09:25 | disposition home or self-care (01) ==
LOC: ANHSURGERY 15:59 → ANHOB2 17:37
PROVIDERS: PCP Physician Assistant; Visit Provider Obstetrics & Gynecology
PROC: (CPT 58552; principal; 2024-10-07 14:00)
DX: D25.0 Submucous leiomyoma of uterus (principal); D25.2 Subserosal leiomyoma of uterus; N80.03 Adenomyosis of the uterus; N88.8 Other specified noninflammatory disorders of cervix uteri; K66.0 Peritoneal adhesions (postprocedural) (postinfection); L85.8 Other specified epidermal thickening; G89.18 Other acute postprocedural pain; L93.0 Discoid lupus erythematosus; F41.9 Anxiety disorder, unspecified; F12.90 Cannabis use, unspecified, uncomplicated; M26.609 Unspecified temporomandibular joint disorder, unspecified side; E66.01 Morbid (severe) obesity due to excess calories; Z68.41 Body mass index [BMI] 40.0-44.9, adult; Z79.899 Other long term (current) drug therapy; Z98.890 Other specified postprocedural states
CPT/HCPCS: 58552; 36415; 85025; 88307; 99199; A9270; J0690; J1100; J1171; J1200; J1650; J1885; J2003; J2250; J2405; J2704; J3010; J7030; J7120